=== PATIENT | male | born 1985 | race Two or more races ===

== ENCOUNTER 2019-06-02 18:39 | Emergency (ER) | payer MEDICAID ==
[~2019-06-02] VITALS: Ht 177.8 cm; Wt 81.6 kg
[2019-06-02 18:46] VITALS: BP 143/87
== END 2019-06-02 20:42 | disposition left against medical advice (07) ==
LOC: ER 18:39 → EDBD 18:39 → ER 20:42
DX: H57.12 Ocular pain, left eye (principal); Y09 Assault by unspecified means; Z59.0 Homelessness; Z53.21 Procedure and treatment not carried out due to patient leaving prior to being seen by health care provider

== ENCOUNTER 2023-07-31 20:09 | Emergency (ER) | payer MEDICAID ==
[~2023-07-31] VITALS: Ht 157.5 cm; Wt 68.1 kg
[2023-07-31] MEDS ORDERED: CLIN300C70 PO (23:33)
[2023-08-01] MEDS ORDERED: cefTRIAXone SOD 1,000 MG VL IM ONE (06:45)
[2023-08-01] MEDS ORDERED: LORazepam 0.5 MG TAB PO ONE (06:45)
[2023-08-01 06:59] VITALS: BP 134/70; TEMP 98.3; O2SAT 97
[2023-08-01 07:00] VITALS: PULSE 74; RESP 20
== END 2023-08-01 08:18 | disposition home or self-care (01) ==
LOC: ER 20:09
DX: L03.113 Cellulitis of right upper limb (principal)
CPT/HCPCS: 96372; 99283; J0696

== ENCOUNTER 2023-08-01 18:13 | Emergency (ER) | payer MEDICAID ==
[~2023-08-01] VITALS: Ht 157.5 cm; Wt 74.3 kg
[~2023-08-01 18:13] MED LIST: CLIN300C70 PO
[2023-08-01] MEDS ORDERED: cefTRIAXone SOD 1,000 MG VL IM ONE (18:45)
[2023-08-01 21:51] VITALS: BP 149/86; PULSE 93; RESP 20; TEMP 98.9; O2SAT 97
== END 2023-08-01 22:02 | disposition home or self-care (01) ==
LOC: ER 18:13
DX: L03.113 Cellulitis of right upper limb (principal); Z88.6 Allergy status to analgesic agent; Z88.8 Allergy status to other drugs, medicaments and biological substances
CPT/HCPCS: 96372; 99283; J0696

== ENCOUNTER 2023-08-03 18:10 | Emergency (ER) | payer MEDICAID ==
[~2023-08-03] VITALS: Ht 157.5 cm; Wt 71.5 kg
[2023-08-03 18:37] VITALS: BP 136/82; PULSE 113; RESP 20; TEMP 97.3; O2SAT 97
== END 2023-08-03 19:56 | disposition home or self-care (01) ==
LOC: ER 18:10
DX: F41.9 Anxiety disorder, unspecified (principal); I10 Essential (primary) hypertension; F32.9 Major depressive disorder, single episode, unspecified; Z59.00 Homelessness unspecified

== ENCOUNTER 2023-08-04 15:49 | Emergency (ER) | payer MEDICAID | END 2023-08-04 19:08 | disposition left against medical advice (07) | LOC: ER 15:49 | DX: F41.9 Anxiety disorder, unspecified (principal); Z53.21 Procedure and treatment not carried out due to patient leaving prior to being seen by health care provider ==

== ENCOUNTER 2023-08-06 17:17 | Emergency (ER) | payer MEDICAID ==
[~2023-08-06] VITALS: Ht 167.6 cm; Wt 76.3 kg
[2023-08-07] MEDS ORDERED: LORazepam 0.5 MG TAB PO ONE (00:45)
[2023-08-07 02:29] VITALS: BP 104/55; PULSE 93; RESP 19; TEMP 98.1; O2SAT 96
== END 2023-08-07 02:30 | disposition home or self-care (01) ==
LOC: EDBD 17:17 → ER 17:17
DX: F41.9 Anxiety disorder, unspecified (principal); F17.210 Nicotine dependence, cigarettes, uncomplicated; Z59.00 Homelessness unspecified; Z79.2 Long term (current) use of antibiotics; Z88.8 Allergy status to other drugs, medicaments and biological substances

== ENCOUNTER 2023-08-17 14:19 | Emergency (ER) | payer MEDICAID ==
[~2023-08-17] VITALS: Ht 162.6 cm; Wt 77.0 kg
[2023-08-17 14:39] VITALS: BP 109/76; PULSE 94; RESP 15; O2SAT 98
[2023-08-17] MEDS ORDERED: LORazepam 0.5 MG TAB PO ONE (16:15)
== END 2023-08-17 16:33 | disposition left against medical advice (07) ==
LOC: ER 14:19 → EDBD 14:19 → ER 16:33
DX: F41.1 Generalized anxiety disorder (principal); F20.9 Schizophrenia, unspecified; Z88.6 Allergy status to analgesic agent; Z88.5 Allergy status to narcotic agent; Z59.00 Homelessness unspecified

== ENCOUNTER 2023-08-17 17:25 | Emergency (ER) | payer MEDICAID ==
[~2023-08-17] VITALS: Ht 162.6 cm; Wt 69.8 kg
[2023-08-18 06:45] VITALS: BP 134/78; TEMP 97.8
[2023-08-18 06:54] VITALS: PULSE 66; RESP 18; O2SAT 100
[2023-08-19] MEDS ORDERED: BENZ1TAB6 PO (10:22)
== END 2023-08-19 00:14 | disposition home or self-care (01) ==
LOC: ER 17:25
DX: F41.1 Generalized anxiety disorder (principal); Z59.00 Homelessness unspecified; Z88.8 Allergy status to other drugs, medicaments and biological substances

== ENCOUNTER 2023-08-19 09:09 | Emergency (ER) | payer MEDICAID ==
[~2023-08-19] VITALS: Ht 162.6 cm; Wt 82.0 kg
[2023-08-19 10:14] VITALS: BP 134/80; PULSE 67; RESP 14; TEMP 97.7; O2SAT 100
[2023-08-19] MEDS ORDERED: BENZ1TAB6 PO (10:22)
[2023-08-19] MEDS ORDERED: BENZTROPINE MESY 0.5 MG TAB PO ONE (10:30)
== END 2023-08-19 10:46 | disposition home or self-care (01) ==
LOC: EDBD 09:09 → ER 09:09
DX: F41.9 Anxiety disorder, unspecified (principal); M62.838 Other muscle spasm; F20.9 Schizophrenia, unspecified; Z76.0 Encounter for issue of repeat prescription; Z88.6 Allergy status to analgesic agent

== ENCOUNTER 2023-08-22 21:07 | Emergency (ER) | payer MEDICAID ==
[~2023-08-22] VITALS: Ht 162.6 cm; Wt 76.4 kg
[~2023-08-22 21:07] MED LIST changes: +BENZ1TAB6 PO
[2023-08-23 03:19] VITALS: BP 136/101; PULSE 73; RESP 20; TEMP 97.9; O2SAT 97
[2023-08-23] MEDS ORDERED: BENZTROPINE MESY 0.5 MG TAB PO ONE (03:30)
== END 2023-08-23 04:04 | disposition home or self-care (01) ==
LOC: ER 21:07
DX: S50.01XA Contusion of right elbow, initial encounter (principal); Z59.00 Homelessness unspecified; Z88.6 Allergy status to analgesic agent; Y04.2XXA Assault by strike against or bumped into by another person, initial encounter; Y93.89 Activity, other specified; Y92.89 Other specified places as the place of occurrence of the external cause; Y99.8 Other external cause status

== ENCOUNTER 2023-08-23 10:21 | Emergency (ER) | payer MEDICAID ==
[~2023-08-23] VITALS: Ht 162.6 cm; Wt 76.0 kg
[2023-08-23 11:14] VITALS: BP 126/79; PULSE 66; RESP 20; TEMP 97.9; O2SAT 99
== END 2023-08-23 17:50 | disposition left against medical advice (07) ==
LOC: EDBD 10:21 → ER 10:21
DX: I10 Essential (primary) hypertension (principal); Z59.01 Sheltered homelessness; Z88.6 Allergy status to analgesic agent; Z88.8 Allergy status to other drugs, medicaments and biological substances

== ENCOUNTER 2023-11-12 09:30 | Emergency (ER) | payer MEDICAID ==
[~2023-11-12] VITALS: Ht 170.2 cm; Wt 80.0 kg
[~2023-11-12 09:30] MED LIST changes: +CLIN1CAP70 PO; -CLIN300C70 PO
[2023-11-12 09:50] VITALS: BP 136/83; PULSE 98; RESP 16; O2SAT 98
== END 2023-11-12 13:24 | disposition left against medical advice (07) ==
LOC: EDBD 09:30 → ER 09:30
DX: M79.671 Pain in right foot (principal); Z53.21 Procedure and treatment not carried out due to patient leaving prior to being seen by health care provider

== ENCOUNTER 2023-11-14 00:03 | Emergency (ER) | payer MEDICAID ==
[~2023-11-14] VITALS: Ht 167.6 cm; Wt 63.5 kg
[2023-11-14 01:17] VITALS: BP 150/84; PULSE 98; RESP 24; TEMP 98; O2SAT 98
== END 2023-11-14 01:16 | disposition home or self-care (01) ==
LOC: EDBD 00:03 → ER 00:03
DX: R07.89 Other chest pain (principal); F41.9 Anxiety disorder, unspecified; F20.9 Schizophrenia, unspecified; F19.10 Other psychoactive substance abuse, uncomplicated; Z88.8 Allergy status to other drugs, medicaments and biological substances; Z59.00 Homelessness unspecified
CPT/HCPCS: 71045; 93005

== ENCOUNTER 2023-11-14 11:08 | Emergency (ER) | payer MEDICAID ==
[~2023-11-14] VITALS: Ht 167.6 cm; Wt 75.0 kg
[2023-11-14 11:25] VITALS: BP 135/83; PULSE 83; RESP 18; O2SAT 97
[2023-11-14] MEDS ORDERED: KETOROLAC TROMETH 60MG/2ML VIAL IM ONE (11:30)
[2023-11-14] MEDS ORDERED: ASPirin 81 mg TAB PO ONE (11:30)
[2023-11-14 12:58] LABS: Basophils # (auto) 0.1 10 ^3/uL (0-0.2); Basophils % (auto) 0.6 % (0.0-2.0); Eosinophils # (auto) 0.1 10 ^3/uL (0-0.8); Eosinophils % (auto) 0.8 % (0.0-7.0); Hemoglobin 14.1 g/dL (13.5-17.5); Lymphocytes % (auto) 24.8 % (10.0-50.0); Mean Corpuscular Hemoglobin 32.2 pg (28.0-32.0); Mean Corpuscular Hgb Conc. 34.3 g/dL (32.0-36.0); Mean Corpuscular Volume 93.9 fL (80.0-100.0); Monocytes # (auto) 0.7 10 ^3/uL (0-1.3); Monocytes % (auto) 8.7 % (0.0-12.0); Neutrophils # (auto) 5.3 10 ^3/uL (1.6-8.6); Neutrophils % (auto) 65.1 % (37.0-80.0); Red Blood Cells 4.36 10^6/uL (4.5-5.90); Red Cell Distribution Width 13.5 % (11.8-14.3); White Blood Cell 8.2 10^3/uL (4.4-10.8)
[2023-11-14 13:25] LABS: Alanine Aminotransferase 32 U/L (7-40); Albumin 4.3 g/dL (3.2-4.8); Alkaline Phosphatase 82 U/L (46-116); Anion Gap 6 (5-15); Aspartate Aminotransferase 36 U/L (13-40); BUN/Creatinine Ratio 20.7 (10.0-20.0); Blood Urea Nitrogen 17 mg/dL (9-23); Calcium 9.7 mg/dL (8.7-10.4); Carbon Dioxide 24 mmol/L (20-30); Chloride 109 mmol/L (98-107); Glucose 108 mg/dL (74-106); Lipase 42 U/L (12-53); Potassium 3.8 mmol/L (3.5-5.1); Sodium 139 mmol/L (136-145)
[2023-11-14 13:26] LABS: Bilirubin, Total 2.2 mg/dL (0.2-1.0); INR 1.07 (0.9-1.15); Partial Thromboplastin Time 32.4 SEC (24.5-34.5); Prothrombin Time 11.2 sec (9.3-11.8); Total Protein 6.6 g/dL (5.7-8.2)
== END 2023-11-14 15:13 | disposition left against medical advice (07) ==
LOC: EDBD 11:08 → ER 11:08 → EDSEX 11:08 → ER 14:33
DX: R07.89 Other chest pain (principal); Z59.00 Homelessness unspecified; Z79.2 Long term (current) use of antibiotics; Z79.899 Other long term (current) drug therapy; Z88.8 Allergy status to other drugs, medicaments and biological substances
CPT/HCPCS: 36415; 80053; 83690; 84484; 85025; 85610; 85730; 93005